=== PATIENT | female | born 1950 | race Caucasian/White ===

== ENCOUNTER 2019-06-12 09:42 | Inpatient (IN) ==
[2019-06-12] MEDS ORDERED: Gabapentin 300 MG CAPSULE PO ONE (09:58)
[2019-06-12] MEDS ORDERED: Ondansetron 4 MG/2 ML VIAL IVP PRN (09:58)
[2019-06-12] MEDS ORDERED: *HR* HYDROmorphone (PF) 1 MG/ML SYRINGE IVP PRN (09:58)
[2019-06-12] MEDS ORDERED: *HR* Promethazine 25 MG/ML VIAL IVP PRN (09:58)
[2019-06-12] MEDS ORDERED: *HR* Labetalol 20 MG/4 ML SYRINGE IVP PRN (09:58)
[2019-06-12] MEDS ORDERED: CeFAZolin Syr 2,000MG/20 ML 2,000 MG/20 ML SYRINGE IVPB ONE (10:08)
[2019-06-12] MEDS ORDERED: Famotidine 20 MG/2 ML VIAL IVP ONE (10:10)
[2019-06-12] MEDS ORDERED: Gabapentin 100 MG CAPSULE PO ONE (10:18)
[2019-06-12] MEDS: Ringers Solution, Lactated 1,000 ML IVC SCH ×2 (11:07→13:20)
[2019-06-12] MEDS ORDERED: *HR* FentaNYL (PF) 100 MCG/2 ML VIAL ONE (12:30)
[2019-06-12] MEDS ORDERED: *HR* Midazolam HCl 2 MG/2 ML VIAL ONE (12:31)
[2019-06-12] MEDS ORDERED: Lidocaine -MPF 2% 2 ML VIAL ONE (12:32)
[2019-06-12] MEDS ORDERED: Propofol 500 MG/50 ML INFUS..BTL ONE (12:33)
[2019-06-12] MEDS ORDERED: Ethanol\\Acetic Acid\\Na Ace\\Ben 1,000 ML IRRIG.SOLN IR ONE (13:11)
[2019-06-12] MEDS ORDERED: Tranexamic Acid 1,000 MG/10 ML VIAL ONE (13:41)
[2019-06-12] MEDS ORDERED: *HR* PHENYLEPHRINE 1,000 MCG/10 ML SYRINGE IVP ONE (13:59)
[2019-06-12] MEDS ORDERED: EPHEDrine 50 MG/ML VIAL ONE (14:07)
[2019-06-12 15:47] LABS: Hematocrit 37.7 % (35.3-44.9); Hemoglobin 12.6 g/dL (11.5-15.4)
[2019-06-12] MEDS ORDERED: Sennosides 8.6 MG TABLET PO PRN (15:52)
[2019-06-12] MEDS ORDERED: Naloxone 0.4 MG/ML INJ IVP PRN (15:52)
[2019-06-12] MEDS ORDERED: MOM Conc 10 ML UD.LIQ PO PRN (15:52)
[2019-06-12] MEDS ORDERED: HYDROcodone BIT/Homatropine 5 MG TABLET PO PRN (15:52)
[2019-06-12] MEDS ORDERED: SUMAtriptan succinate 50 MG TABLET PO PRN (15:52)
[2019-06-12] MEDS ORDERED: Acetaminophen IV 1,000 MG/100 ML INFUS..BTL IVPB PRN (20:12)
[2019-06-12] MEDS: Ondansetron 4 MG/2 ML VIAL IVP PRN (20:26)
[2019-06-12] MEDS: Ascorbic Acid 500 MG TABLET PO SCH (20:29)
[2019-06-12] MEDS: Topiramate 100 MG TABLET PO SCH (20:36)
[2019-06-12] MEDS ORDERED: ceFAZolin 2,000 MG in 0.9 % Sodium Chloride 100 ML IVPB SCH (20:45)
[2019-06-12] MEDS: ceFAZolin 2,000 MG in 0.9 % Sodium Chloride 100 ML IVPB SCH ×2 (21:51→21:53)
[2019-06-12] MEDS: *HR* OxyCODONE Immed Rel 5 MG TABLET PO PRN (23:24)
[2019-06-13] MEDS: Ringers Solution, Lactated 1,000 ML IVC SCH ×2 (03:09→17:21)
[2019-06-13] MEDS: ceFAZolin 2,000 MG in 0.9 % Sodium Chloride 100 ML IVPB SCH (05:22)
[2019-06-13] MEDS: *HR* OxyCODONE Immed Rel 5 MG TABLET PO PRN (05:22)
[2019-06-13] MEDS: Ondansetron 4 MG/2 ML VIAL IVP PRN ×2 (05:50→17:02)
[2019-06-13 07:00] LABS: BUN/Creatinine Ratio 16 (6-26); Blood Urea Nitrogen 16 mg/dL (8-23); Calcium 8.5 mg/dL (8.6-10.3); Carbon Dioxide 22 mEq/L (23-29); Chloride 103 mEq/L (98-107); Glucose 117 mg/dL (70-105); Osmolality,Calculated 286 (280-300); Potassium 3.8 mEq/L (3.5-5.1); Sodium 137 mEq/L (136-145); eGFR For African Americans > 60 (> 60); eGFR For Non-African Americans 55 (> 60)
[2019-06-13 07:21] LABS: Basophils % 0.2 %; Eosinophils % 0.1 %; Hematocrit 33.2 % (35.3-44.9); Hemoglobin 11.1 g/dL (11.5-15.4); Immature Granulocytes % 0.2 % (0-4); Lymphocytes # 2.2 K/mcL (0.6-4.6); Lymphocytes % 24.2 %; Mean Corpuscular HGB Conc 33.4 g/dL (31.6-35.5); Mean Corpuscular Hemoglobin 32.2 pg (28.0-33.3); Mean Corpuscular Volume 96.2 fL (83.0-100.0); Mean Platelet Volume 10.8 fL (9.4-12.4); Monocytes # 0.8 K/mcL (0.0-1.3); Platelet Count 195 K/mcL (140-400); Red Blood Count 3.45 M/mcL (3.82-4.97); Red Cell Distribution Width 13.3 % (11.5-14.5); Segmented Neutrophils % 66.3 %
[2019-06-13] MEDS: Ascorbic Acid 500 MG TABLET PO SCH ×2 (07:51→16:12)
[2019-06-13] MEDS: Thiamine (B-1) 100 MG TABLET PO SCH (07:51)
[2019-06-13] MEDS: Tolterodine LA (24 HR) 2 MG CAP.ER.24H PO SCH (07:52)
[2019-06-13] MEDS: Folic Acid 1 MG TABLET PO SCH (07:52)
[2019-06-13] MEDS: Multivit/Ca/Min/Fe/FA 1 TAB TABLET PO SCH (07:52)
[2019-06-13] MEDS: Fluticasone Propionate Nasal 50 MCG/SPRAY BOTTLE NS SCH (07:53)
[2019-06-13] MEDS: Aspirin Enteric Coated 81 MG Tablet PO SCH (10:56)
[2019-06-13] MEDS: *HR* Promethazine 25 MG/ML VIAL IVP PRN ×2 (12:58→20:02)
[2019-06-13] MEDS: Topiramate 100 MG TABLET PO SCH (20:03)
[2019-06-14 06:48] LABS: Basophils % 0.1 %; Eosinophils % 0.2 %; Hemoglobin 10.6 g/dL (11.5-15.4); Immature Granulocytes % 0.3 % (0-4); Lymphocytes # 2.4 K/mcL (0.6-4.6); Lymphocytes % 25.8 %; Mean Corpuscular HGB Conc 33.1 g/dL (31.6-35.5); Mean Corpuscular Volume 96.7 fL (83.0-100.0); Mean Platelet Volume 10.7 fL (9.4-12.4); Monocytes # 0.9 K/mcL (0.0-1.3); Neutrophils # 5.9 K/mcL (1.6-8.9); Platelet Count 187 K/mcL (140-400); Red Blood Count 3.31 M/mcL (3.82-4.97); Red Cell Distribution Width 13.2 % (11.5-14.5); Segmented Neutrophils % 63.6 %; White Blood Count 9.3 K/mcL (4.3-11.1)
[2019-06-14 07:07] LABS: BUN/Creatinine Ratio 15 (6-26); Blood Urea Nitrogen 13 mg/dL (8-23); Calcium 8.7 mg/dL (8.6-10.3); Carbon Dioxide 23 mEq/L (23-29); Chloride 99 mEq/L (98-107); Glucose 107 mg/dL (70-105); Osmolality,Calculated 277 (280-300); Potassium 3.6 mEq/L (3.5-5.1); Sodium 133 mEq/L (136-145); eGFR For African Americans > 60 (> 60); eGFR For Non-African Americans > 60 (> 60)
[2019-06-14] MEDS: Tolterodine LA (24 HR) 2 MG CAP.ER.24H PO SCH (09:29)
[2019-06-14] MEDS: *HR* OxyCODONE Immed Rel 5 MG TABLET PO PRN ×3 (09:29→22:02)
[2019-06-14] MEDS: Thiamine (B-1) 100 MG TABLET PO SCH (09:30)
[2019-06-14] MEDS: Folic Acid 1 MG TABLET PO SCH (09:30)
[2019-06-14] MEDS: Ascorbic Acid 500 MG TABLET PO SCH ×2 (09:30→15:59)
[2019-06-14] MEDS: Aspirin Enteric Coated 81 MG Tablet PO SCH (09:30)
[2019-06-14] MEDS: Fluticasone Propionate Nasal 50 MCG/SPRAY BOTTLE NS SCH (09:31)
[2019-06-14] MEDS: Multivit/Ca/Min/Fe/FA 1 TAB TABLET PO SCH (09:31)
[2019-06-14] MEDS: Topiramate 100 MG TABLET PO SCH (22:03)
[2019-06-15] MEDS: *HR* OxyCODONE Immed Rel 5 MG TABLET PO PRN ×4 (05:32→23:43)
[2019-06-15] MEDS: Ascorbic Acid 500 MG TABLET PO SCH ×2 (10:05→17:14)
[2019-06-15] MEDS: Folic Acid 1 MG TABLET PO SCH (10:06)
[2019-06-15] MEDS: Tolterodine LA (24 HR) 2 MG CAP.ER.24H PO SCH (10:06)
[2019-06-15] MEDS: Aspirin Enteric Coated 81 MG Tablet PO SCH (10:06)
[2019-06-15] MEDS: Multivit/Ca/Min/Fe/FA 1 TAB TABLET PO SCH (10:06)
[2019-06-15] MEDS: Thiamine (B-1) 100 MG TABLET PO SCH (10:07)
[2019-06-15] MEDS: Fluticasone Propionate Nasal 50 MCG/SPRAY BOTTLE NS SCH (10:30)
[2019-06-15] MEDS: Topiramate 100 MG TABLET PO SCH (20:11)
[2019-06-16] MEDS: Folic Acid 1 MG TABLET PO SCH (07:12)
[2019-06-16] MEDS: Thiamine (B-1) 100 MG TABLET PO SCH (07:12)
[2019-06-16] MEDS: *HR* OxyCODONE Immed Rel 5 MG TABLET PO PRN ×2 (07:12→14:58)
[2019-06-16] MEDS: Ascorbic Acid 500 MG TABLET PO SCH (07:12)
[2019-06-16] MEDS: Multivit/Ca/Min/Fe/FA 1 TAB TABLET PO SCH (07:13)
[2019-06-16] MEDS: Tolterodine LA (24 HR) 2 MG CAP.ER.24H PO SCH (07:13)
[2019-06-16] MEDS: Aspirin Enteric Coated 81 MG Tablet PO SCH (07:13)
[2019-06-16] MEDS: Fluticasone Propionate Nasal 50 MCG/SPRAY BOTTLE NS SCH (07:14)
[2019-06-16] MEDS ORDERED: Ondansetron ODT 4 MG TAB.RAPDIS SL PRN (08:43)
[2019-06-16 11:24] VITALS: BP 111/73
== END 2019-06-16 15:09 | DRG 470 ==
LOC: SAMDAY 09:42 → 3NENU 15:47
PROVIDERS: ADMIT Orthopaedic Surgery; ATTEND Orthopaedic Surgery